=== PATIENT | male | born 1990 | race Caucasian/White ===

== ENCOUNTER 2020-07-31 16:48 | Emergency (ER) | payer SELFPAY ==
[~2020-07-31] VITALS: Ht 170.2 cm; Wt 79.4 kg
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
--- NOTE | 2020-07-31 17:08 | NUR ---
AMBER SCHULTE AT BEDSIDE
[2020-07-31] MEDS ORDERED: SILVER SULFADIAZINE CREAM 25 GM TUBE ONE (17:18)
--- NOTE | 2020-07-31 17:21 | NUR ---
CLEANSED BILAT UPPER EXTREMITY WITH STERILE WATER, PAT DRY, GENTAMICIN OINTMENT APPLIED. APPLIED NON-ADHERENT PAD. WRAPPED WITH KERLIX.
[2020-07-31] MEDS ORDERED: TDAP [DIPH/PERTUSSIS/TET] 0.5 ML VIAL IM ONE ×2 (17:29→17:30)
[2020-07-31] MEDS ORDERED: ACETAMINOPHEN ES 500 MG TABLET ONE (17:29)
[2020-07-31] MEDS ORDERED: ACETAMINOPHEN 325 MG TABLET PO ONE (17:30)
[2020-07-31] MEDS ORDERED: SILVER SULFADIAZINE CREAM 25 GM TUBE TP ONE (17:30)
[2020-07-31] MEDS ORDERED: GENTAMICIN 0.1% CREAM 15 GM TUBE ONE (17:30)
[2020-07-31] MEDS ORDERED: GENTAMICIN 0.1% OINT 15 GM TUBE TP ONE ×2 (17:30→18:00)
[2020-07-31] MEDS ORDERED: TRAMADOL HCL 50 MG TABLET ONE (17:43)
[2020-07-31] MEDS ORDERED: IBUP-1955 PO (17:49)
[2020-07-31] MEDS ORDERED: HYDR-4303 PO (17:49)
[2020-07-31] MEDS ORDERED: GENT3.5O7 OP (17:49)
[2020-07-31] MEDS ORDERED: TRAMADOL HCL 50 MG TABLET PO ONE (18:00)
--- NOTE | 2020-07-31 18:13 | NUR ---
Patient discharged to home in stable condition. Written and verbal after care instructions given. Patient verbalizes understanding of instruction.
[2020-07-31 18:14] VITALS: BP 127/79
== END 2020-07-31 18:14 | disposition home or self-care (01) ==
LOC: ER 16:52
DX: T22.10XA Burn of first degree of shoulder and upper limb, except wrist and hand, unspecified site, initial encounter (principal); T20.17XA Burn of first degree of neck, initial encounter; T20.14XA Burn of first degree of nose (septum), initial encounter; R00.0 Tachycardia, unspecified; Z79.899 Other long term (current) drug therapy; X02.8XXA Other exposure to controlled fire in building or structure, initial encounter; Y93.89 Activity, other specified; Y92.89 Other specified places as the place of occurrence of the external cause; Y99.8 Other external cause status
CPT/HCPCS: 16020; 90471; 90715; 99283; A6403 ×2